=== PATIENT | male | born 1975 | race Caucasian/White ===

== ENCOUNTER 2018-11-10 13:59 | Day surgery (SDC) | payer OTHER ==
[~2018-11-10 13:59] MED LIST: CEFAZOLIN 2 GM/50 ML (PMX) 50 ML IVPB; LACTATED RINGER'S 1,000 ML IV*
[2018-11-10] MEDS ORDERED: EPHEDrine SULFATE 50 MG/5 ML SYG IV (16:00)
[2018-11-10] MEDS ORDERED: ONDANSETRON 4 MG INJ IV (16:00)
[2018-11-10] MEDS ORDERED: MIDAZOLAM 1 MG/ML 2 ML INJ IV (16:00)
[2018-11-10] MEDS ORDERED: ALBUTEROL 0.083% (NEB) 2.5 MG/3 ML AMP HHN (16:00)
[2018-11-10] MEDS ORDERED: LABETALOL HCL 20MG INJ IV (16:00)
[2018-11-10] MEDS ORDERED: hydrALAzine 20 MG INJ IV (16:00)
[2018-11-10] MEDS ORDERED: DIPHENHYDRAMINE 50 MG INJ IV (16:00)
[2018-11-10] MEDS ORDERED: IPRATROPIUM (NEB) 0.5 MG/2.5 ML AMP HHN (16:00)
[2018-11-10] MEDS ORDERED: HYDROmorphONE 1 MG/5 ML IV SYRINGE IV ×3 (16:00)
[2018-11-10] MEDS ORDERED: MEPERIDINE 25 MG INJ IV (16:00)
[2018-11-10] MEDS ORDERED: OXYCODONE/ACETAMINOPHEN (5/325) TAB PO ×2 (16:00)
[2018-11-10] MEDS ORDERED: TRIMETHOBENZAMIDE 100 MG/ML VIAL IM (16:00)
[2018-11-10] MEDS ORDERED: FENTAnyl 50 MCG/ML VIAL IV ×3 (16:00)
[2018-11-10] MEDS ORDERED: PROPOFOL 200 MG INJ (16:00)
[2018-11-10] MEDS ORDERED: MIDAZOLAM 1 MG/ML 2 ML INJ (16:07)
[2018-11-10] MEDS ORDERED: FENTAnyl 50 MCG/ML VIAL (16:10)
[2018-11-10] MEDS ORDERED: KETOROLAC 30 MG INJ (16:12)
[2018-11-10] MEDS ORDERED: METOCLOPRAMIDE 10 MG INJ (16:12)
[2018-11-10] MEDS: LIDOCAINE 1% (MPF) 30 ML INJ (16:29)
[2018-11-10] MEDS: BUPIVACAINE 0.5% (SDV) 30 ML INJ (16:29)
== END 2018-11-10 17:57 | disposition home or self-care (01) ==
LOC: SDS 13:59
DX: G56.02 Carpal tunnel syndrome, left upper limb (principal); E11.9 Type 2 diabetes mellitus without complications
CPT/HCPCS: 64721; 82962